=== PATIENT | male | born 1945 | race Caucasian/White ===

== ENCOUNTER 2020-01-02 16:12 | Inpatient (IN) | payer MEDICARE, OTHER ==
[~2020-01-02] VITALS: Ht 180.3 cm; Wt 109.4 kg
[~2020-01-02 16:12] MED LIST: CHOLESTEROL PILL; COUMADIN PO; GLUCOPHAGE1000 MG PO; GLUCOTROL10 M1 PO; ZESTRIL 10MG10 MG PO
[2020-01-02 16:26] VITALS: BP 133/56; PULSE 78; TEMP 98.4
[2020-01-02] MEDS ORDERED: CARDIZEM LA180 MG PO (18:09)
[2020-01-02] MEDS ORDERED: JANUVIA 100MG100 MG PO (18:09)
[2020-01-02] MEDS ORDERED: PRAVACHOL 40MG40 MG PO (18:10)
[2020-01-02] MEDS ORDERED: GLUCOTROL10 MG PO (18:10)
[2020-01-02] MEDS ORDERED: COUMADIN 5MG5 MG/TAB PO (18:11)
[2020-01-02] MEDS ORDERED: COUMADIN 6MG6 MG/TAB PO (18:12)
[2020-01-02] MEDS ORDERED: NATURAL IRON65 MG PO (18:12)
[2020-01-02] MEDS ORDERED: INSLANT SQ (18:13)
[2020-01-02] MEDS ORDERED: EPA FISH OIL1 SGL PO (18:14)
[2020-01-02] MEDS ORDERED: VITAMIN D 1001000 IU PO (18:15)
[2020-01-02] MEDS ORDERED: LASIX 40MG TABL40 MG PO (18:30)
[2020-01-02] MEDS ORDERED: CALCITRIOL PO (18:30)
[2020-01-02] MEDS ORDERED: HCTZ12.5TAB PO (18:30)
--- NOTE | 2020-01-02 18:33 | NUR ---
Patient resting in bed. Denies pain and discomfort. Dr Serna aware patient is here. VSS. IV CDI. Patient eating dinner. No further needs expressed from patient. Call light within reach.
[2020-01-02] MEDS ORDERED: LASIX 80MG TABL80 MG PO (19:22)
[2020-01-02 19:37] VITALS: BP 130/62; PULSE 98; TEMP 97.3
[2020-01-02] MEDS ORDERED: GLUCOTROL XL10 MG PO (19:38)
[2020-01-02] MEDS ORDERED: GLUCOPHAGE1000 MG PO (19:46)
[2020-01-02] MEDS ORDERED: PROAIR HFA0.09 MG/AC IH (19:47)
--- NOTE | 2020-01-02 22:17 | NUR ---
Pt doing okay, alert and oriented with VSS. ambulatory and ind in room. here with fluid overload/ pts abdomen and ble are extremely swollen, 3+. pts scrotum is also very swollen and red but denies pain with this. has productive cough but no mucous production. pt is a chronic smoker. started on bumex drip at 5ml/hr. shins are reddened, crusted and swollen. pt also has a large hard lump on left elbow. left hand is black/blue. pt denies pain or needs at this time. call light within reach, will continue to monitor
[2020-01-02 22:46] VITALS: BP 116/45; PULSE 88; TEMP 98.5
[2020-01-02 23:58] LABS: URINE PROTEIN:CREAT RATIO 0.36 (0.00-0.14)
--- NOTE | 2020-01-03 06:20 | NUR ---
pt has done well throughout night, tolerating bumex gtt. good urine output
[2020-01-03 06:53] LABS: HEMOGLOBIN 10.1 g/dl (13.5-18.0); MEAN CELL VOLUME 87 fl (80.0-100.0); MEAN CORPUSCULAR HEMOGLOBIN 27 pg (27.0-31.0); MEAN CORPUSCULAR HGB CONC 31 g/dl (33.0-37.0); MEAN PLATELET VOLUME 10.1 fl (7.4-10.4); PLATELET COUNT 205 K/mm3 (130-400); RED BLOOD COUNT 3.79 M/mm3 (4.20-5.60); REDCELL DISTRIBUTION WIDTH-CV 17.5 % (11.5-14.5)
[2020-01-03 06:56] LABS: INR 2.4 (0.8-3.0); PROTHROMBIN TIME 28.8 SECONDS (9.7-12.8)
[2020-01-03 07:02] LABS: ALBUMIN 3.4 gm/dL (3.5-5.0); CALCIUM 9.7 mg/dL (8.4-10.2); CREATININE, serum 2.65 (0.66-1.25); PHOSPHOROUS 4.4 mg/dL (2.5-4.5); POTASSIUM 4.2 mmol/L (3.4-5.0)
[2020-01-03 07:41] LABS: BAND 5 % (0-10); EOSINOPHIL 2 % (0-4); LYMPHOCYTE 4 % (20.0-51.0); NEUTROPHILS 80 % (42.0-75.2); NUCLEATED RED BLOOD CELL 1 (0-6)
[2020-01-03 07:43] LABS: ANISOCYTOSIS 2+; HYPOCHROMIA 3+
[2020-01-03 09:07] VITALS: BP 121/47; PULSE 68; TEMP 97.7
--- NOTE | 2020-01-03 10:04 | NUR ---
Initial visit; Patient thanked Advanced Manufacturing Associate for looking in on him and offering God's blessings.
[2020-01-03 11:49] VITALS: BP 115/49; PULSE 86; TEMP 97.4
--- NOTE | 2020-01-03 14:57 | NUR ---
JARON met with the patient to complete initial intake. The patient lives alone in [place]. The patient has a cane and reports independence with ADLs. The patient's PCP is Dr. Roberts and picks up his medications from [facility]. The patient does not have advanced directives in the EMR. The patient reports that his emergency contact is his daughter, Brandy Jones or . director water and waste services will continue to follow to ensure a safe discharge.
[2020-01-03 15:35] VITALS: BP 118/50; PULSE 86
[2020-01-03 15:41] VITALS: TEMP 97.4
[2020-01-03 20:16] VITALS: BP 107/39; PULSE 85; TEMP 97.9
[2020-01-04 00:28] VITALS: BP 106/48; PULSE 88; TEMP 98.3
--- NOTE | 2020-01-04 01:35 | NUR ---
This advertising writer noted PT had BP below Parameters. This advertising writer reassessed PT and noted that BP had increased as charted. Will continue to monitor.
--- NOTE | 2020-01-04 03:30 | NUR ---
PT noted to be in bed and reports that earlier he was standing up to use male urinal and did not use call light to request help. PT IV occluded and blood noted to be in the iv tubing. IV line flushed with 10 cc NS with no difficulty or reports of pain. IV restarted and infusing with no alarms. PT educated to use call light to request assistance before leaving bed to reduce risk of falls, injury, or accidentally removing IV line from his arm. PT states understanding. Will continue to monitor.
--- NOTE | 2020-01-04 04:32 | NUR ---
PT uses call light to notify this technical proposal writer that he needs to void and have a BM. Upon entering PT room PT is noted to be standing with SCD's on and pulling on his legs. PT is also noted to be standing in urine and reports that his legs got caught while transfering to his feet and he dropped his urinal and began to void while pipcking it back up. PT floor cleaned up by this technical proposal writer and PT assisted to restroom where he makes a small firm BM. Upon assisting PT back to bed SCD's are left of due to PT noncompliance with transfering and increased fall risk. PT is on coumadin which is also used as a VTE. Will provide report to more BECERRA requesting clarification order from regarding coumadin versus SCDs. Will continue to monitor.
[2020-01-04 04:53] VITALS: BP 121/68; PULSE 79; TEMP 982
--- NOTE | 2020-01-04 06:43 | NUR ---
sHIFT REPORT GIVEN TO GEOVANNI BECERRA. PT RESTING IN BED PEACEFULLY WATCHING TV WITH NO WANTS/NEEDS AT THIS TIME
[2020-01-04 08:00] VITALS: BP 108/61; PULSE 91; TEMP 97.4
[2020-01-04 09:04] LABS: HEMOGLOBIN 10.2 g/dl (13.5-18.0); MEAN CELL VOLUME 86 fl (80.0-100.0); MEAN CORPUSCULAR HEMOGLOBIN 27 pg (27.0-31.0); MEAN CORPUSCULAR HGB CONC 31 g/dl (33.0-37.0); MEAN PLATELET VOLUME 10.1 fl (7.4-10.4); PLATELET COUNT 226 K/mm3 (130-400); RED BLOOD COUNT 3.82 M/mm3 (4.20-5.60); REDCELL DISTRIBUTION WIDTH-CV 17.3 % (11.5-14.5)
[2020-01-04 09:08] LABS: HEMATOCRIT 32.9 % (42.0-52.0)
[2020-01-04 09:17] LABS: ALBUMIN 3.5 gm/dL (3.5-5.0); CALCIUM 10.1 mg/dL (8.4-10.2); CREATININE, serum 2.66 (0.66-1.25); PHOSPHOROUS 4.2 mg/dL (2.5-4.5); POTASSIUM 3.7 mmol/L (3.4-5.0)
[2020-01-04 09:33] LABS: INR 2.6 (0.8-3.0); PROTHROMBIN TIME 31.1 SECONDS (9.7-12.8)
[2020-01-04 10:47] LABS: BAND 3 % (0-10); EOSINOPHIL 2 % (0-4); LYMPHOCYTE 14 % (20.0-51.0); NEUTROPHILS 69 % (42.0-75.2)
[2020-01-04 10:48] LABS: PLATELET ESTIMATE NORMAL (NORMAL)
[2020-01-04 11:49] VITALS: BP 124/53; PULSE 83; TEMP 98
[2020-01-04 16:56] VITALS: BP 105/47; PULSE 87; TEMP 98.1
--- NOTE | 2020-01-04 18:52 | NUR ---
PT report received from Lizzy BECERRA. PT sitting in bed with no s/s of distress noted. Male urinal is noted to have clear yellow urine. No s/s of distress noted.
--- NOTE | 2020-01-04 20:30 | NUR ---
PT resting peacefully in bed with eyes open and watching tv. PT greets this sports writer upon entering room. PT remains in positive spirits and reports that he is feeling better today. PT remains edematous to his BLE, scrotum and abdomen at this time. PT presents with no s/s of distress and denies pain at this time. PT call light is within reach and he has a cup of ice on his bedside table and states that he is watching his fluid intake. IV fluids running without complications. Will continue to monitor.
[2020-01-04 21:59] VITALS: BP 111/57; PULSE 84; TEMP 97.8
[2020-01-05] VITALS (7 sets, daily range): BP systolic 114–128; BP diastolic 46–66; PULSE 79–91; TEMP 97.1–98.9
--- NOTE | 2020-01-05 02:22 | NUR ---
PT continues to cause ooculsions to his IV D/T raising his right arms above his head and bending the elbow while he is sleeping. There is blood noted in the IV tubing. IV tubing flushes easily with NS syringe. Two 10ml syringed used to flush IV from the proximal port and through the IV pump VIA the piggyback. PT new IV access is difficult to palpate due to his edema. Will continue to monitor.
--- NOTE | 2020-01-05 04:50 | NUR ---
PT is restign in bed peacefully and opens eyes when this documentation writer enters room to obtain VS. PT presents with no s/s of distress and denies pain or wants/needs at this time. IV continues to infuse without complications. Will continue to monitor.
--- NOTE | 2020-01-05 07:01 | NUR ---
PT report given to Lizzy BECERRA. PT resting in bed peacefully with eyes closed and no s/s of distress noted.
[2020-01-05 10:57] LABS: BASO # 0.1 (0.0-0.2); BASO % 1.1 % (0.0-2.0); EOS # 0.3 (0.0-0.7); EOS % 3.6 % (0-4.0); GRAN # 6.1 (1.4-6.5); GRAN % 69.4 % (42.2-75.2); LYMPH # 0.9 (1.2-3.4); LYMPH % 9.6 % (20.0-51.0); MEAN CELL VOLUME 85 fl (80.0-100.0); MEAN CORPUSCULAR HEMOGLOBIN 27 pg (27.0-31.0); MEAN CORPUSCULAR HGB CONC 32 g/dl (33.0-37.0); MEAN PLATELET VOLUME 9.6 fl (7.4-10.4); MONO # 1.4 (0.1-0.6); MONO % 15.6 % (1.7-9.3); PLATELET COUNT 201 K/mm3 (130-400); RED BLOOD COUNT 3.71 M/mm3 (4.20-5.60); REDCELL DISTRIBUTION WIDTH-CV 17.2 % (11.5-14.5)
[2020-01-05 10:58] LABS: INR 2.5 (0.8-3.0)
[2020-01-05 11:03] LABS: HEMATOCRIT 31.7 % (42.0-52.0)
[2020-01-05 11:23] LABS: ALBUMIN 3.4 gm/dL (3.5-5.0); CALCIUM 10.2 mg/dL (8.4-10.2); CREATININE, serum 2.62 (0.66-1.25); PHOSPHOROUS 4.1 mg/dL (2.5-4.5); POTASSIUM 3.6 mmol/L (3.4-5.0)
--- NOTE | 2020-01-05 21:30 | NUR ---
Pt. sitting up in bed at this time. Pt. is A&OX3, assessment complete. INT to rt. ac patent. Pt. denies pain or other needs, call light within reach.
[2020-01-06 04:58] VITALS: BP 114/52; PULSE 84; TEMP 97.7
[2020-01-06 06:34] LABS: MEAN CELL VOLUME 86 fl (80.0-100.0); MEAN CORPUSCULAR HGB CONC 32 g/dl (33.0-37.0); MEAN PLATELET VOLUME 9.6 fl (7.4-10.4); PLATELET COUNT 195 K/mm3 (130-400); RED BLOOD COUNT 3.61 M/mm3 (4.20-5.60); REDCELL DISTRIBUTION WIDTH-CV 17.3 % (11.5-14.5)
[2020-01-06 06:44] LABS: HEMATOCRIT 30.9 % (42.0-52.0); HEMOGLOBIN 9.8 g/dl (13.5-18.0); MEAN CORPUSCULAR HEMOGLOBIN 27 pg (27.0-31.0)
[2020-01-06 06:49] LABS: ALBUMIN 3.3 gm/dL (3.5-5.0); CALCIUM 10.2 mg/dL (8.4-10.2); CREATININE, serum 2.77 (0.66-1.25); PHOSPHOROUS 3.9 mg/dL (2.5-4.5); POTASSIUM 3.5 mmol/L (3.4-5.0)
[2020-01-06 07:37] LABS: INR 2.4 (0.8-3.0); PROTHROMBIN TIME 28.9 SECONDS (9.7-12.8)
[2020-01-06 07:39] VITALS: BP 108/46; PULSE 88; TEMP 97.7
[2020-01-06 07:42] LABS: ANISOCYTOSIS 1+; BAND 7 % (0-10); BASOPHIL 1 % (0-2); EOSINOPHIL 3 % (0-4); LYMPHOCYTE 18 % (20.0-51.0); METAMYELOCYTE 1 % (0-0); NEUTROPHILS 60 % (42.0-75.2); OVALOCYTES 1+
--- NOTE | 2020-01-06 08:10 | NUR ---
Lying in bed with eyes closed. Opens eyes when name called out. Gets short of breath with activity. Encouraged patient to cough and take deep breaths. Mild swelling to left elbow with some redness noted. 3+ bilat lower extremity edema. Skin on lower etremities thick and scaly. Heart rate is irregular. Lung sounds are clear but slightly diminished. Patient denies pain or any needs at this time.
--- NOTE | 2020-01-06 09:07 | NUR ---
Pt watching tv upon this mortgage underwriter's arrival. AOx4. IV site intact. Denies pain at this time. Expressed knowledge of fluid restriction and stated that he wants to be compliant with this so that he can return home soon. SCDs re-applied and pt was reminded to press call light before getting out of bed so that SCDs could be removed. Pt verbalized understanding. +1 edema noted in bilateral upper extremities and +2 edema noted in bilateral lower extremities. Pt was encouraged to come to staff with any needs.
[2020-01-06 11:24] VITALS: BP 121/57; PULSE 88; TEMP 98.2
--- NOTE | 2020-01-06 15:20 | NUR ---
This copywriter assisted pt with shower. Bandage around IV site replaced. Shortness of breath with exertion observed. Given warm blanket.
[2020-01-06 16:09] VITALS: BP 110/53; PULSE 88; TEMP 98
--- NOTE | 2020-01-06 19:00 | NUR ---
PT report received from daysdeaminata RN and student. PT presents in bed watching tv and greets this contract writer and dayspomerene hospital nurse as they enter the room. PT appears to be in good spirits and states that he continues to feel better day by day. Call light is within reach and PT has a glass of ice on bedside table within reach. PT remains cognizant of his fluid restrictions and follows them. Bumex IV drip is running with no s/s of adverse IV reactions or complications. Will continue to monitor.
[2020-01-06 19:35] VITALS: BP 127/47; PULSE 85; TEMP 97.7
[2020-01-06 22:51] VITALS: BP 110/40; PULSE 85; TEMP 98.9
[2020-01-07 01:35] VITALS: BP 121/52
--- NOTE | 2020-01-07 01:38 | NUR ---
PT BP noted to be below ordered parameters. BP reassessed by this grant writer and noted to be above parameters at this time as charted. Will continue to monitor. No s/s of cardiopulmonary distress noted.
--- NOTE | 2020-01-07 03:00 | NUR ---
PT resting in bed with eyes closed and opens eyes as this teletypewriter operator enters room. PT requests a glass of ice as the glass he had earlier is almost empty. This teletypewriter operator provided a glass of ice. PT shows no s/s of distress, denies pain, and otherwise has no wants/needs. Will continue to monitor. Call light within reach and PT is knowledgeable of how to use call light on bedrail in the event that he drops the call light while sleeping.
[2020-01-07 03:31] VITALS: BP 120/65; PULSE 87; TEMP 97.7
--- NOTE | 2020-01-07 04:55 | NUR ---
PT uses call light to request help from this entry writer. Upon entering room PT is noted to be standing at bedside with what he reports is urine around his feet and soaking his underwear and clear yellow urine in male urinal. This entry writer assists PT in cleaning himself up, wipes up the floor, and assist PT in placing on new clean dry underwear. PT states that he just couldnt get to the urinal in time. PT returns to bed with no s/s of distress noted with Bumex IV infusing with no complications. Will continue to monitor.
[2020-01-07 06:40] LABS: HEMOGLOBIN 10.1 g/dl (13.5-18.0); MEAN CELL VOLUME 88 fl (80.0-100.0); MEAN CORPUSCULAR HEMOGLOBIN 27 pg (27.0-31.0); MEAN CORPUSCULAR HGB CONC 31 g/dl (33.0-37.0); MEAN PLATELET VOLUME 9.8 fl (7.4-10.4); PLATELET COUNT 197 K/mm3 (130-400); RED BLOOD COUNT 3.71 M/mm3 (4.20-5.60); REDCELL DISTRIBUTION WIDTH-CV 17.2 % (11.5-14.5)
[2020-01-07 06:41] LABS: INR 2.4 (0.8-3.0); PROTHROMBIN TIME 29.2 SECONDS (9.7-12.8)
[2020-01-07 06:47] LABS: ALBUMIN 3.5 gm/dL (3.5-5.0); CALCIUM 10.5 mg/dL (8.4-10.2); CREATININE, serum 3.07 (0.66-1.25); HEMATOCRIT 32.5 % (42.0-52.0); PHOSPHOROUS 4.8 mg/dL (2.5-4.5); POTASSIUM 3.5 mmol/L (3.4-5.0)
[2020-01-07 08:05] VITALS: BP 127/56; PULSE 76; TEMP 98.8
[2020-01-07 08:27] LABS: BAND 4 % (0-10); BASOPHIL 1 % (0-2); EOSINOPHIL 4 % (0-4); LYMPHOCYTE 10 % (20.0-51.0); METAMYELOCYTE 2 % (0-0); NEUTROPHILS 73 % (42.0-75.2); PLATELET ESTIMATE NORMAL (NORMAL)
[2020-01-07 10:45] VITALS: BP 107/44; PULSE 90; TEMP 97.4
--- NOTE | 2020-01-07 10:50 | NUR ---
Assessment complete. Patient relaxing in bed at this time. Family at the bedside at this time. States he feels pretty good. No pain or discomfort reported. Patient is aware of the need to wear his SCDs, was just in to remind him of this. Plan is to DC tomorrow. Bumex drip has been D/C'd. IV site CD&I. No further needs were expressed at this time. Call light is in reach.
--- NOTE | 2020-01-07 11:31 | NUR ---
Pt is resting in bed. Denies having any pain. SCDs on lower extremities. IV converted to INT on Right arm. Pt was up to chair for breakfast at 0730 and consumed 100%. Pt is compliant with strict I/O. Accucheck this morning was 99, no sliding scale insulin administered.
[2020-01-07 16:20] VITALS: BP 123/48; PULSE 81; TEMP 97.5
--- NOTE | 2020-01-07 17:48 | NUR ---
Pt has had an uneventful day. No complaints of pain. Had to assist with repositioning a few times which relieved any discomfort. SCDs have been on all day per Dr. Serna' reminder this morning. Son and other family have been in to visit intermittently throughout the day. No further needs were expressed at this time. Call light is in reach.
[2020-01-07 20:00] VITALS: BP 125/49; PULSE 88; TEMP 97.7
[2020-01-08 00:59] VITALS: BP 104/38; PULSE 77; TEMP 97.8
[2020-01-08 04:49] VITALS: BP 126/47; PULSE 96; TEMP 98.2
[2020-01-08 06:10] LABS: MEAN CELL VOLUME 89 fl (80.0-100.0); MEAN CORPUSCULAR HGB CONC 30 g/dl (33.0-37.0); MEAN PLATELET VOLUME 10.4 fl (7.4-10.4); PLATELET COUNT 182 K/mm3 (130-400); RED BLOOD COUNT 3.65 M/mm3 (4.20-5.60); REDCELL DISTRIBUTION WIDTH-CV 17.4 % (11.5-14.5)
[2020-01-08 06:18] LABS: HEMATOCRIT 32.4 % (42.0-52.0); HEMOGLOBIN 9.8 g/dl (13.5-18.0); MEAN CORPUSCULAR HEMOGLOBIN 27 pg (27.0-31.0)
[2020-01-08 06:22] LABS: ALBUMIN 3.5 gm/dL (3.5-5.0); CALCIUM 10.2 mg/dL (8.4-10.2); CREATININE, serum 2.98 (0.66-1.25); PHOSPHOROUS 4.9 mg/dL (2.5-4.5); POTASSIUM 3.1 mmol/L (3.4-5.0)
[2020-01-08 06:44] LABS: INR 2.6 (0.8-3.0); PROTHROMBIN TIME 30.7 SECONDS (9.7-12.8)
[2020-01-08 07:00] VITALS: BP 94/47; PULSE 73; TEMP 97.7
--- NOTE | 2020-01-08 07:00 | NUR ---
Pt resting comfortablly with eyes closed in bed. Shift assessment completed. Denies having pain. Blood pressure 94/47, primary nurse notified. SCDs reapplied. Got Pt ice per request. INT right forearm intact, no redness noted.
--- NOTE | 2020-01-08 07:18 | NUR ---
Patient has been able to rest this shift. Patient calls for assistance for voiding. No complaints of pain, nausea or vomiting this shift. Patient lung sounds expitory wheezes bilaterally. Edema in lower extremities are at 2+ bilaterally, with discolored, flaking shins.
[2020-01-08 07:23] LABS: ANISOCYTOSIS 1+; BAND 6 % (0-10); EOSINOPHIL 1 % (0-4); HYPOCHROMIA 2+; LYMPHOCYTE 19 % (20.0-51.0); METAMYELOCYTE 1 % (0-0); MICROCYTOSIS 1+; NEUTROPHILS 69 % (42.0-75.2); PLATELET ESTIMATE NORMAL (NORMAL)
[2020-01-08 07:24] LABS: OVALOCYTES 1+
--- NOTE | 2020-01-08 09:15 | NUR ---
Reassessed blood pressure at 135/67, Pt alert and up in chair, ambulating independently in room.
[2020-01-08 09:51] VITALS: BP 135/67
--- NOTE | 2020-01-08 10:09 | NUR ---
JARON met with the patient to review discharge plan. The patient reports that the still plans to return home upon discharge. He had no questions for SW. He states that his daughter will provide him with transportation back home. No additional needs at this time.
[2020-01-08 11:00] VITALS: BP 156/57; PULSE 73; TEMP 98.4
--- NOTE | 2020-01-08 16:18 | NUR ---
The patient is to discharge back home today, 01/08. SW met with the patient and presented and explained the IM form. The patient verbalized understanding, signed, and he was provided a copy. No additional needs at this time.
--- NOTE | 2020-01-08 18:28 | NUR ---
Pt escorted off the floor at this time. Discharge instructions discussed. Questions answered.
== END 2020-01-08 18:29 | disposition home or self-care (01) | DRG 292 ==
LOC: MEDICAL 16:12
PROVIDERS: ADMIT Internal Medicine Nephrology
DX: I13.0 Hypertensive heart and chronic kidney disease with heart failure and stage 1 through stage 4 chronic kidney disease, or unspecified chronic kidney disease (principal); N17.9 Acute kidney failure, unspecified; I50.32 Chronic diastolic (congestive) heart failure; Q61.2 Polycystic kidney, adult type; I42.9 Cardiomyopathy, unspecified; K76.0 Fatty (change of) liver, not elsewhere classified; N18.3 Chronic kidney disease, stage 3 (moderate); E78.5 Hyperlipidemia, unspecified; E11.22 Type 2 diabetes mellitus with diabetic chronic kidney disease; E11.21 Type 2 diabetes mellitus with diabetic nephropathy; Z66 Do not resuscitate; J44.9 Chronic obstructive pulmonary disease, unspecified; I87.8 Other specified disorders of veins; E88.09 Other disorders of plasma-protein metabolism, not elsewhere classified; I48.91 Unspecified atrial fibrillation; E66.9 Obesity, unspecified; I27.20 Pulmonary hypertension, unspecified; F17.210 Nicotine dependence, cigarettes, uncomplicated; Z68.36 Body mass index [BMI] 36.0-36.9, adult; Z79.01 Long term (current) use of anticoagulants; Z79.1 Long term (current) use of non-steroidal anti-inflammatories (NSAID); Z95.2 Presence of prosthetic heart valve
CPT/HCPCS: J1815

== ENCOUNTER 2020-01-30 12:41 | Inpatient (IN) | payer MEDICARE, OTHER ==
[~2020-01-30] VITALS: Ht 180.3 cm; Wt 107.3 kg
[~2020-01-30 12:41] MED LIST changes: +CALCITRIOL PO; +CARDIZEM LA180 MG PO; +COUMADIN 5MG5 MG/TAB PO; +COUMADIN 6MG6 MG/TAB PO; +EPA FISH OIL1 SGL PO; +GLUCOTROL XL10 MG PO; +GLUCOTROL10 MG PO; +HCTZ12.5TAB PO; +INSLANT SQ; +JANUVIA 100MG100 MG PO; +LASIX 40MG TABL40 MG PO; +LASIX 80MG TABL80 MG PO; +NATURAL IRON65 MG PO; +PRAVACHOL 40MG40 MG PO; +PROAIR HFA0.09 MG/AC IH; +VITAMIN D 1001000 IU PO
[2020-01-30] MEDS ORDERED: ZAROXOLYN 2.52.5 MG PO (14:48)
[2020-01-30 15:33] VITALS: BP 99/46; PULSE 78; TEMP 97.8
[2020-01-30 16:21] LABS: MEAN CELL VOLUME 89 fl (80.0-100.0); MEAN CORPUSCULAR HGB CONC 31 g/dl (33.0-37.0); MEAN PLATELET VOLUME 9.9 fl (7.4-10.4); PLATELET COUNT 207 K/mm3 (130-400); RED BLOOD COUNT 3.25 M/mm3 (4.20-5.60); REDCELL DISTRIBUTION WIDTH-CV 17.5 % (11.5-14.5)
[2020-01-30 16:22] LABS: INR 2.7 (0.8-3.0)
[2020-01-30 16:27] LABS: HEMATOCRIT 28.8 % (42.0-52.0); HEMOGLOBIN 8.9 g/dl (13.5-18.0); MEAN CORPUSCULAR HEMOGLOBIN 27 pg (27.0-31.0)
[2020-01-30 16:28] LABS: ALBUMIN 3.3 gm/dL (3.5-5.0); BILIRUBIN,TOTAL 1.3 mg/dL (0.0-1.0); CALCIUM 9.4 mg/dL (8.4-10.2); CREATININE, serum 2.84 (0.66-1.25); POTASSIUM 4.5 mmol/L (3.4-5.0); TOTAL PROTEIN 7.1 gm/dL (6.4-8.2)
[2020-01-30 18:33] LABS: ANISOCYTOSIS 1+; BAND 4 % (0-10); HYPOCHROMIA 1+; LYMPHOCYTE 11 % (20.0-51.0); NEUTROPHILS 75 % (42.0-75.2); PLATELET ESTIMATE NORMAL (NORMAL)
[2020-01-30 18:34] LABS: OVALOCYTES 1+; STOMATOCYTE 1+
[2020-01-30 19:57] VITALS: BP 145/59; PULSE 79; TEMP 98
[2020-01-30 20:34] LABS: URINE PROTEIN:CREAT RATIO 0.25 (0.00-0.14)
--- NOTE | 2020-01-30 21:59 | NUR ---
RECIEVED REPORT FROM THE DAY SHIFT. PATIENT WAS RESTING IN BED. GAVE HIS EVENING MEDICATIONS AND INSULIN. EMPITED URINAL FOR HIM. PATIENT DENIES ANY OTHER NEEDS AT THIS TIME.
[2020-01-31 00:18] VITALS: BP 115/40; PULSE 80; TEMP 98.7
--- NOTE | 2020-01-31 02:15 | NUR ---
PATIENT IS RESTING IN BED WITH URINL AT BEDSIDE
--- NOTE | 2020-01-31 03:34 | NUR ---
PATIENT RESTING IN BED
--- NOTE | 2020-01-31 03:50 | NUR ---
PATIENT CALLED AND REQUESTED THE PRESENCE OF THE NURSE. PATIENT STATED THAT HIS BLOOD SUGAR FELT LOW. UPON CHECKING BLOOD SUGAR HE WAS 61. ORANGE JUICE, GRAMHM CRACKERS, AND PEANUT BUTTER GIVEN TO PATIENT. WILL RECHECK BLOOD SUGAR
[2020-01-31 04:25] VITALS: BP 122/42; PULSE 83; TEMP 97.5
--- NOTE | 2020-01-31 05:10 | NUR ---
PATIENT HAS BEEN ABLE TO REST MAJORITY OF THE NIGHT. CALLING WHEN HE NEEDED HIS URINAL DUMPED. HE DID CALL AND ASK FOR THE NURSE AND AFTER CHECKING HIS BLOOD SUGAR, IT WAS IN THE 60'S. AFTER SOME ORANGE JUICE, GRAGHM CRACKERS, AND PEANUT BUTTER, IT WAS 89. PATIENT WAS ABLE TO GO BACK TO SLEEP. WILL REPORT OFF TO DAY SHIFT WHEN THEY ARRIVE.
[2020-01-31 06:48] LABS: BASO # 0.1 (0.0-0.2); BASO % 1.3 % (0.0-2.0); EOS # 0.3 (0.0-0.7); GRAN # 5.9 (1.4-6.5); GRAN % 68.8 % (42.2-75.2); LYMPH # 0.8 (1.2-3.4); MEAN CELL VOLUME 89 fl (80.0-100.0); MEAN CORPUSCULAR HGB CONC 31 g/dl (33.0-37.0); MEAN PLATELET VOLUME 10.1 fl (7.4-10.4); MONO # 1.5 (0.1-0.6); MONO % 17.3 % (1.7-9.3); PLATELET COUNT 196 K/mm3 (130-400); RED BLOOD COUNT 3.19 M/mm3 (4.20-5.60); REDCELL DISTRIBUTION WIDTH-CV 17.3 % (11.5-14.5)
[2020-01-31 06:52] LABS: HEMATOCRIT 28.4 % (42.0-52.0); HEMOGLOBIN 8.8 g/dl (13.5-18.0); MEAN CORPUSCULAR HEMOGLOBIN 28 pg (27.0-31.0)
[2020-01-31 07:02] LABS: CALCIUM 9.5 mg/dL (8.4-10.2); CREATININE, serum 2.82 (0.66-1.25); POTASSIUM 3.9 mmol/L (3.4-5.0)
[2020-01-31 07:11] LABS: INR 2.7 (0.8-3.0)
[2020-01-31 08:07] VITALS: BP 106/46; PULSE 92; TEMP 97.9
--- NOTE | 2020-01-31 08:47 | NUR ---
Initial visit; Patient thanked Figurine Maker for looking in on him and offering spiritual care.
[2020-01-31 11:13] VITALS: BP 134/55; PULSE 82; TEMP 97.5
--- NOTE | 2020-01-31 16:25 | NUR ---
JARON met with the patient to complete initial intake. The patient lives alone in [place]. The patient has a cane and walker but does not need them and is independent with ADLs. The patient's PCP is Dr. Roberts and receives medications from [facility]. The patient does not have advanced directives in the EMR. The patient has one daughter, Brandy Jones (p#[phone] or [phone]). Physical therapy is recommending home health or outpatient physcial therapy. The patient is not interested in those services at this time. director agricultural services will continue to follow to ensure a safe discharge.
[2020-01-31 17:00] VITALS: BP 108/40; PULSE 79; TEMP 97.7
[2020-01-31 19:19] VITALS: BP 128/64; PULSE 83; TEMP 97.9
--- NOTE | 2020-01-31 19:51 | NUR ---
RECIEVED REPORT FROM DAY SHIFT. NO ABNORMAL FINDINGS ON HIS ASSESSMENT. CALL LIGHT IN REACH WELL URINAL FOR HIM TO USE. DENIES ANY SHORTNESS OF BREATH, NAUSEA, VOMITING, OR DIARRHEA.
[2020-02-01] VITALS (7 sets, daily range): BP systolic 94–122; BP diastolic 31–62; PULSE 76–95; TEMP 97.3–98.9
--- NOTE | 2020-02-01 01:27 | NUR ---
PATIENT IS RESTING
--- NOTE | 2020-02-01 06:06 | NUR ---
patient has rested through the night in his bed. urinal at bedside for him to use. call light within reach. denies any other needs at this time. will report off to day shift upon their arrival
[2020-02-01 07:34] LABS: BASO # 0.1 (0.0-0.2); BASO % 1.3 % (0.0-2.0); EOS # 0.3 (0.0-0.7); EOS % 3.6 % (0-4.0); GRAN # 5.5 (1.4-6.5); LYMPH % 11.7 % (20.0-51.0); MEAN CELL VOLUME 88 fl (80.0-100.0); MEAN CORPUSCULAR HGB CONC 30 g/dl (33.0-37.0); MEAN PLATELET VOLUME 10.4 fl (7.4-10.4); MONO # 1.4 (0.1-0.6); PLATELET COUNT 197 K/mm3 (130-400); RED BLOOD COUNT 3.15 M/mm3 (4.20-5.60); REDCELL DISTRIBUTION WIDTH-CV 17.2 % (11.5-14.5)
[2020-02-01 07:42] LABS: HEMATOCRIT 27.6 % (42.0-52.0); HEMOGLOBIN 8.4 g/dl (13.5-18.0); MEAN CORPUSCULAR HEMOGLOBIN 27 pg (27.0-31.0)
[2020-02-01 07:44] LABS: INR 2.7 (0.8-3.0); PROTHROMBIN TIME 32.3 SECONDS (9.7-12.8)
[2020-02-01 07:59] LABS: CALCIUM 9.5 mg/dL (8.4-10.2); CREATININE, serum 2.61 (0.66-1.25); POTASSIUM 3.4 mmol/L (3.4-5.0)
--- NOTE | 2020-02-01 17:37 | NUR ---
Patient is resting in bed on left side. Is noted to have another sprite, has not met fluid restriction as of this time. Denies pain at this time. States he is in a comfortable position. No other needs are verbalized. Call light and personal items are within reach.
--- NOTE | 2020-02-01 20:35 | NUR ---
RECIEVED REPORT FROM DAY SHIFT ON THE PATIENT. BUMEX DRIP IS AT 2.5 MLS/HR. ONLY COMPLAINT FROM THE PATIENT IS THAT HE IS TIRED. NO ABNORMAL FINDINGS UPON ASSESSMENT OF THE PATIENT. PATIENT HAS CALL LIGHT WITHIN REACH, WATER, AND URINAL. DENIES ANY OTHER ISSUES AT THIS TIME
--- NOTE | 2020-02-02 01:25 | NUR ---
patient is resting in bed on his left side
--- NOTE | 2020-02-02 03:26 | NUR ---
patient is sitting on the edge of the bed having some graghm crackers and peanut butter. patients urinal was dumped. denies any needs at this time
[2020-02-02 04:31] VITALS: BP 110/42; PULSE 82; TEMP 97.5
--- NOTE | 2020-02-02 06:01 | NUR ---
PATIENT HAD A RESTFUL NIGHT SLEEP FOR THE MOST PART AFTER BEING AWAKE FOR THE CRACKERS SNACK. PATIENT USES THE URINAL AT BEDSIDE. NO CHANGES ARE NOTED. WILL REPORT OFF TO DAY SHIFT UPON THEIR ARRIVAL.
[2020-02-02 07:28] VITALS: BP 105/43; PULSE 82; TEMP 97.8
[2020-02-02 12:26] VITALS: BP 126/60; PULSE 69; TEMP 97.5
[2020-02-02 13:36] LABS: MEAN CELL VOLUME 88 fl (80.0-100.0); MEAN CORPUSCULAR HGB CONC 31 g/dl (33.0-37.0); MEAN PLATELET VOLUME 9.8 fl (7.4-10.4); PLATELET COUNT 187 K/mm3 (130-400); REDCELL DISTRIBUTION WIDTH-CV 16.9 % (11.5-14.5)
[2020-02-02 13:39] LABS: HEMATOCRIT 29.1 % (42.0-52.0); MEAN CORPUSCULAR HEMOGLOBIN 27 pg (27.0-31.0)
[2020-02-02 13:41] LABS: INR 1.9 (0.8-3.0); PROTHROMBIN TIME 22.9 SECONDS (9.7-12.8)
[2020-02-02 13:47] LABS: CALCIUM 9.6 mg/dL (8.4-10.2); CREATININE, serum 2.92 (0.66-1.25); POTASSIUM 3.4 mmol/L (3.4-5.0)
[2020-02-02 14:09] LABS: ANISOCYTOSIS 1+; BAND 4 % (0-10); EOSINOPHIL 4 % (0-4); LYMPHOCYTE 8 % (20.0-51.0); METAMYELOCYTE 1 % (0-0); NEUTROPHILS 66 % (42.0-75.2); OVALOCYTES 1+; PLATELET ESTIMATE NORMAL (NORMAL)
[2020-02-02 16:45] VITALS: BP 109/42; PULSE 78; TEMP 97.8
--- NOTE | 2020-02-02 19:01 | NUR ---
Patient resting in bed, head is up, is eating supper. Weight obtained per providers order. Calll ight and personal items are within reach..
--- NOTE | 2020-02-02 19:05 | NUR ---
Pt report received from Patti BECERRA at Pt bedside. Pt has call light at his side and on the bedside table are beverages and male urinal within reach. No s/s of distress noted. Will continue to monitor.
[2020-02-02 20:13] VITALS: BP 100/40; PULSE 81; TEMP 98.4
[2020-02-02 23:41] VITALS: BP 100/40; PULSE 82; TEMP 98.8
--- NOTE | 2020-02-03 02:04 | NUR ---
Pt has remained in stable condition since shift report periodically getting up to his feet to use his male urinal. Pt is A&Ox4, able to make wants/needs knows, and has call light at his side or within reach on the bedside table. Pt has been resting in bed this shift watching tv earlier and currently lying in bed with eyes closed. Earlier when this television writer made rounds Pt opened his eyes as this television writer entered room and denied pain or wants/needs. Pt is currently resting peacefully with eyes closed with no s/s of pain or distress. Pt compliant with medication regimen and I&O collection. Will continue to monitor.
[2020-02-03 04:07] VITALS: BP 90/40; PULSE 105; TEMP 98.3
[2020-02-03 06:54] LABS: BASO # 0.1 (0.0-0.2); EOS # 0.3 (0.0-0.7); EOS % 3.1 % (0-4.0); GRAN # 5.4 (1.4-6.5); GRAN % 63.3 % (42.2-75.2); LYMPH # 1.3 (1.2-3.4); LYMPH % 14.6 % (20.0-51.0); MEAN CELL VOLUME 89 fl (80.0-100.0); MEAN CORPUSCULAR HGB CONC 31 g/dl (33.0-37.0); MONO # 1.5 (0.1-0.6); MONO % 17.3 % (1.7-9.3); PLATELET COUNT 185 K/mm3 (130-400); RED BLOOD COUNT 3.25 M/mm3 (4.20-5.60); REDCELL DISTRIBUTION WIDTH-CV 16.8 % (11.5-14.5)
[2020-02-03 06:58] LABS: HEMATOCRIT 28.8 % (42.0-52.0); MEAN CORPUSCULAR HEMOGLOBIN 28 pg (27.0-31.0)
[2020-02-03 06:59] LABS: INR 1.8 (0.8-3.0); PROTHROMBIN TIME 21.6 SECONDS (9.7-12.8)
[2020-02-03 07:05] LABS: CALCIUM 9.5 mg/dL (8.4-10.2); CREATININE, serum 3.3 (0.66-1.25); POTASSIUM 3.1 mmol/L (3.4-5.0)
--- NOTE | 2020-02-03 07:28 | NUR ---
Pt report given to Elizabeth BECERRA at bedside. Pt is noted to be using male urinal at bedside.
--- NOTE | 2020-02-03 08:00 | NUR ---
PATIENT IS ORIENTED BUT DROWSY THIS AM. REPORTS HE SLEPT OFF AND ON LAST NIGHT. NOTED LOWER B/P OF 90/40 WITH ELEVATED HR OF 105. PATIENT HR HAS BEEN IN THE 80'S. EXERCISE EQUIPMENT SPECIALIST REPORTS ANY CHANGES IN THE PATIENT OVER NIGHT. AM BS WAS 59, PATIENT GIVEN JUICE. BS IS NOW 77, NO SSI GIVEN. AM MEDS GIVEN. NOTED BLE +2 EDEMA WHICH IS REPORTED IMPROVED AND MILD SCROTUM EDEMA. GAVE DIURETIC. PATIENT VOIDING ADEQUATE AMOUNTS OF CLEAR YELLOW URINE USING URINAL. 15OO CC FLUID RESTRICTION. RIGHT AC IV TO INT. PATIENT HAS HX OF CKD, DM & CHF. PATIENT STATES HE WILL EVENTUALLY NEED DIALYSIS AND FISTULA PLACED. NEPHROLOGY ON CASE. HEAD TO TOE ASSESSMENT COMPLETE. DNR. NO OTHER NEEDS AT THIS TIME. PATIENT WANTING TO REST A LITTLE LONGER. LIGHTS TURNED DOWN. CALL LIGHT IN REACH.
[2020-02-03 09:10] VITALS: BP 109/31; PULSE 77; TEMP 97.6
--- NOTE | 2020-02-03 09:15 | NUR ---
PATIENT AMBULATING IN HALLWAYS WITH PHYSICAL THERAPY. GAIT STEADY WITH WALKER. SEE PT NOTES.
[2020-02-03 12:50] VITALS: BP 103/43; PULSE 73; TEMP 97.7
--- NOTE | 2020-02-03 14:40 | NUR ---
First visit from the package sealer machine. No needs right now.
[2020-02-03 15:37] VITALS: BP 101/39; PULSE 80; TEMP 97.3
--- NOTE | 2020-02-03 16:33 | NUR ---
SW attempted to meet with the patient to review discharge plan. The patient was sleeping. The patient's son-in-law, Kings Parada, was in the room. Kings reports that his (the patient's daughter), Emilia, would have questions for SW. He states that Emilia will be up to the hospital tomorrow morning. SW to continue to follow.
--- NOTE | 2020-02-03 19:10 | NUR ---
Pt report recieved from dayshift nurse at bedside. Pt is sitting in bed with TV on and no s/s of distress noted. Pt is A&Ox4, is able to make his wants/needs knows, and has call light within reach. Pt bedside table has beverages within reach as well as the male urinal that Pt uses independantly. Will continue to monitor.
[2020-02-03 20:16] VITALS: BP 99/49; PULSE 72; TEMP 98
--- NOTE | 2020-02-03 23:30 | NUR ---
Pt has had a good evening and has remained resting in bed with no complaints of pain, discomfort and no s/s of distress noted. Pt has been watching tv but is currently lying in bed with eyes closed and tv off. Pt has used the male urinal multiple times during the shift with clear yellow urine noted. Pt is compliant with care and medication regimen. Pt is eager to be discharged and discussed with this typewriter ribbon winder during his assessment about his medical plans for outpatient visit for the placement of his dialysis fistula next week. Pt has call light within reach and this typewriter ribbon winder will continue to monitor.
[2020-02-03 23:48] VITALS: BP 99/39; PULSE 77; TEMP 98.1
[2020-02-04 04:32] VITALS: BP 107/44; PULSE 66; TEMP 98.2
--- NOTE | 2020-02-04 05:39 | NUR ---
Pt has slept throughout the night until waking up about an hour ago stating that he was hungry and asking this senior medical writer to get him 2 oranges from his bag. Pt denies pain or discomfort at this time. Pt remains in stable condition with no s/s of distress noted. Will continue to monitor.
--- NOTE | 2020-02-04 06:45 | NUR ---
Report given to Yarelis BECERRA
[2020-02-04 07:43] VITALS: BP 100/40; PULSE 79; TEMP 97.7
--- NOTE | 2020-02-04 08:06 | NUR ---
Pt assessment complete. Pt is sitting up in bed eating breakfast, he is A/O x4. His breathing is even and unlabored on RA, pt denies SOB. Pt does have a wet cough, reports it's non productive. Pt denies any pain. LUE restricted. Pt eager to discharge, POC discussed with patient who verbalizes understanding. Has no further needs at this time. Call light within reach.
--- NOTE | 2020-02-04 11:58 | NUR ---
SW met with the patient to review discharge plan and to discuss PT's recommendation of home health vs outpatient therapy. The patient declined both home health and outpatient therapy. He states that his daughter, son-in-law, and grandson help him and that he has one of them with him 90% of the time. The patient is to discharge back home today, 02/03, with family support. JARON presented and explained the IM form to the patient. The patient verbalized understanding, signed, and he was provided a copy. No additional needs at this time.
--- NOTE | 2020-02-04 12:00 | NUR ---
Discharge paperwork and instructions reviewed with patient. All questions answered at this time. IV to RAC dc'd catheter tip intact. Pt awaiting ride at this time.
--- NOTE | 2020-02-04 12:45 | NUR ---
Pt wheeled out at this time.
--- NOTE | 2020-02-05 14:00 | NUR ---
Palliative Care Nurse, Collette, informed SW that she spoke to the patient's family for the discharge follow up call and the patient's family informed her that they would like to get the patient set up for home health. JARON attempted to contact the patient's daughter, Nasima, to follow up and discuss home health. SW left her a voicemail.
== END 2020-02-04 12:46 | disposition home or self-care (01) | DRG 641 ==
LOC: MEDICAL 12:41
PROVIDERS: Nurse Practitioner; ADMIT Internal Medicine Nephrology
DX: E87.70 Fluid overload, unspecified (principal); I48.20 Chronic atrial fibrillation, unspecified; J90 Pleural effusion, not elsewhere classified; N18.3 Chronic kidney disease, stage 3 (moderate); E11.22 Type 2 diabetes mellitus with diabetic chronic kidney disease; I12.9 Hypertensive chronic kidney disease with stage 1 through stage 4 chronic kidney disease, or unspecified chronic kidney disease; I27.20 Pulmonary hypertension, unspecified; F17.210 Nicotine dependence, cigarettes, uncomplicated
CPT/HCPCS: J1815

== ENCOUNTER 2020-03-25 13:54 | Inpatient (IN) | payer MEDICARE, OTHER ==
[~2020-03-25] VITALS: Ht 180.3 cm; Wt 108.1 kg
[~2020-03-25 13:54] MED LIST changes: +ZAROXOLYN 2.52.5 MG PO
[2020-03-25 15:24] VITALS: BP 108/63; PULSE 75
[2020-03-25] MEDS ORDERED: LOVENOX120 MG/0.8 SQ (16:07)
[2020-03-25 16:37] LABS: MEAN CELL VOLUME 87 fl (80.0-100.0); MEAN CORPUSCULAR HGB CONC 31 g/dl (33.0-37.0); MEAN PLATELET VOLUME 9.7 fl (7.4-10.4); PLATELET COUNT 204 K/mm3 (130-400); RED BLOOD COUNT 3.32 M/mm3 (4.20-5.60); REDCELL DISTRIBUTION WIDTH-CV 15.7 % (11.5-14.5)
[2020-03-25 16:38] LABS: HEMATOCRIT 28.9 % (42.0-52.0); HEMOGLOBIN 8.9 g/dl (13.5-18.0); MEAN CORPUSCULAR HEMOGLOBIN 27 pg (27.0-31.0)
[2020-03-25 16:44] LABS: INR 2.6 (0.8-3.0); PROTHROMBIN TIME 29.1 SECONDS (9.7-12.8)
[2020-03-25 16:46] LABS: PARTIAL THROMBOPLASTIN TIME 45.3 SECONDS (26.0-37.0)
[2020-03-25 16:57] LABS: ANISOCYTOSIS 1+; EOSINOPHIL 3 % (0-4); HYPOCHROMIA 3+; LYMPHOCYTE 15 % (20.0-51.0); NEUTROPHILS 69 % (42.0-75.2); OVALOCYTES 1+; PLATELET ESTIMATE NORMAL (NORMAL); POLYCHROMASIA 1+
[2020-03-25 17:15] LABS: IRON,SERUM 39 ug/dL (35-150)
[2020-03-25 17:16] LABS: ALBUMIN 3.5 gm/dL (3.5-5.0); BILIRUBIN,TOTAL 1.5 mg/dL (0.0-1.0); CALCIUM 9.6 mg/dL (8.4-10.2); CREATININE, serum 3.65 (0.66-1.25); TOTAL PROTEIN 7.3 gm/dL (6.4-8.2)
[2020-03-25 17:25] LABS: TOTAL IRON BINDING CAPACITY 422 ug/dL (261-462)
[2020-03-25 21:45] VITALS: BP 136/70; PULSE 76
[2020-03-25 21:46] VITALS: TEMP 97.5
[2020-03-26 00:05] VITALS: BP 145/74; PULSE 84; TEMP 97.4
[2020-03-26 04:30] VITALS: BP 109/48; PULSE 74; TEMP 97.1
[2020-03-26 07:18] LABS: PROTHROMBIN TIME 22.2 SECONDS (9.7-12.8)
[2020-03-26 09:00] VITALS: BP 96/47; PULSE 87; TEMP 97.7
[2020-03-26 11:45] VITALS: BP 102/48; PULSE 72; TEMP 97.8
[2020-03-26 17:00] VITALS: BP 108/46; PULSE 76; TEMP 97.8
[2020-03-26 17:19] LABS: HEPATITIS B SURFACE ANTIGEN Negative (Negative); HEPATITIS C VIRUS ANTIBODY Negative (Negative)
[2020-03-26 19:21] LABS: TRANSFERRIN 314 mg/dL (180-329)
[2020-03-26 19:54] VITALS: BP 115/46; PULSE 88; TEMP 97.7
[2020-03-27] VITALS (7 sets, daily range): BP systolic 95–125; BP diastolic 42–61; PULSE 82–125; TEMP 97.9–99
[2020-03-27 05:42] LABS: INR 1.4 (0.8-3.0); PROTHROMBIN TIME 15.8 SECONDS (9.7-12.8)
[2020-03-27 13:41] LABS: MEAN CELL VOLUME 87 fl (80.0-100.0); MEAN CORPUSCULAR HGB CONC 31 g/dl (33.0-37.0); MEAN PLATELET VOLUME 9.5 fl (7.4-10.4); PLATELET COUNT 207 K/mm3 (130-400); RED BLOOD COUNT 3.05 M/mm3 (4.20-5.60); REDCELL DISTRIBUTION WIDTH-CV 15.8 % (11.5-14.5)
[2020-03-27 13:55] LABS: ALBUMIN 3.3 gm/dL (3.5-5.0); CALCIUM 9.6 mg/dL (8.4-10.2); CREATININE, serum 3.55 (0.66-1.25); PHOSPHOROUS 4.6 mg/dL (2.5-4.5)
[2020-03-27 13:58] LABS: HEMATOCRIT 26.5 % (42.0-52.0); HEMOGLOBIN 8.3 g/dl (13.5-18.0); MEAN CORPUSCULAR HEMOGLOBIN 27 pg (27.0-31.0); POTASSIUM 2.8 mmol/L (3.4-5.0)
[2020-03-27 14:29] LABS: ANISOCYTOSIS 1+; EOSINOPHIL 2 % (0-4); HYPOCHROMIA 1+; LYMPHOCYTE 12 % (20.0-51.0); NEUTROPHILS 76 % (42.0-75.2); PLATELET ESTIMATE NORMAL (NORMAL)
[2020-03-27 14:30] LABS: OVALOCYTES 1+
[2020-03-28 03:51] VITALS: BP 108/44; PULSE 91; TEMP 98.4
[2020-03-28 07:42] LABS: INR 1.3 (0.8-3.0); PROTHROMBIN TIME 14.9 SECONDS (9.7-12.8)
[2020-03-28 08:49] LABS: MEAN CELL VOLUME 89 fl (80.0-100.0); MEAN CORPUSCULAR HGB CONC 31 g/dl (33.0-37.0); MEAN PLATELET VOLUME 9.7 fl (7.4-10.4); PLATELET COUNT 184 K/mm3 (130-400); RED BLOOD COUNT 3.04 M/mm3 (4.20-5.60); REDCELL DISTRIBUTION WIDTH-CV 15.8 % (11.5-14.5)
[2020-03-28 08:51] LABS: HEMATOCRIT 26.9 % (42.0-52.0); HEMOGLOBIN 8.2 g/dl (13.5-18.0); MEAN CORPUSCULAR HEMOGLOBIN 27 pg (27.0-31.0)
[2020-03-28 09:38] LABS: ALBUMIN 3.1 gm/dL (3.5-5.0); CALCIUM 9.4 mg/dL (8.4-10.2); CREATININE, serum 2.95 (0.66-1.25); PHOSPHOROUS 3.9 mg/dL (2.5-4.5)
[2020-03-28 09:49] LABS: POTASSIUM 2.8 mmol/L (3.4-5.0)
[2020-03-28 11:45] LABS: BAND 2 % (0-10); LYMPHOCYTE 9 % (20.0-51.0); NEUTROPHILS 78 % (42.0-75.2); PLATELET ESTIMATE NORMAL (NORMAL)
[2020-03-28 11:46] LABS: ANISOCYTOSIS 1+
[2020-03-28 12:10] VITALS: BP 116/65; PULSE 94; TEMP 99.4
[2020-03-28 16:32] VITALS: BP 104/39; PULSE 83; TEMP 99.5
[2020-03-28 19:31] VITALS: BP 136/59; PULSE 91; TEMP 99.8
[2020-03-28 20:54] VITALS: BP 107/53; PULSE 93
[2020-03-28 22:49] VITALS: BP 130/61; PULSE 93; TEMP 98.5
[2020-03-29 04:07] VITALS: BP 101/69; PULSE 84; TEMP 98.7
[2020-03-29 07:20] LABS: INR 1.3 (0.8-3.0); PROTHROMBIN TIME 14.6 SECONDS (9.7-12.8)
[2020-03-29 08:18] VITALS: BP 96/65; PULSE 141; TEMP 99.2
[2020-03-29 11:39] VITALS: BP 123/39; PULSE 94; TEMP 97.9
[2020-03-29 15:48] VITALS: BP 109/58; PULSE 102; TEMP 98.2
[2020-03-29 19:29] VITALS: BP 127/55; PULSE 91; TEMP 98.1
[2020-03-30] VITALS (7 sets, daily range): BP systolic 103–123; BP diastolic 36–56; PULSE 85–104; TEMP 97.2–98.9
[2020-03-30 06:17] LABS: INR 1.3 (0.8-3.0); PROTHROMBIN TIME 14.9 SECONDS (9.7-12.8)
[2020-03-30 09:03] LABS: MEAN CELL VOLUME 90 fl (80.0-100.0); MEAN CORPUSCULAR HGB CONC 30 g/dl (33.0-37.0); MEAN PLATELET VOLUME 9.5 fl (7.4-10.4); PLATELET COUNT 179 K/mm3 (130-400); RED BLOOD COUNT 2.92 M/mm3 (4.20-5.60); REDCELL DISTRIBUTION WIDTH-CV 15.6 % (11.5-14.5)
[2020-03-30 09:09] LABS: ALBUMIN 3.1 gm/dL (3.5-5.0); CALCIUM 9.3 mg/dL (8.4-10.2); CREATININE, serum 3.14 (0.66-1.25); PHOSPHOROUS 4.1 mg/dL (2.5-4.5); POTASSIUM 3.5 mmol/L (3.4-5.0)
[2020-03-30 09:11] LABS: HEMATOCRIT 26.2 % (42.0-52.0); HEMOGLOBIN 7.8 g/dl (13.5-18.0); MEAN CORPUSCULAR HEMOGLOBIN 27 pg (27.0-31.0)
[2020-03-30 12:15] LABS: BAND 4 % (0-10); EOSINOPHIL 5 % (0-4); LYMPHOCYTE 15 % (20.0-51.0); NEUTROPHILS 69 % (42.0-75.2)
[2020-03-30 12:21] LABS: ANISOCYTOSIS 1+; PLATELET ESTIMATE NORMAL (NORMAL)
[2020-03-30 12:24] LABS: OVALOCYTES 1+
[2020-03-30 12:26] LABS: HYPOCHROMIA 2+
[2020-03-31] VITALS (8 sets, daily range): BP systolic 95–120; BP diastolic 46–65; PULSE 70–91; TEMP 97.7–98.1
[2020-03-31 06:08] LABS: MEAN CELL VOLUME 87 fl (80.0-100.0); MEAN CORPUSCULAR HGB CONC 30 g/dl (33.0-37.0); MEAN PLATELET VOLUME 9.5 fl (7.4-10.4); PLATELET COUNT 179 K/mm3 (130-400); RED BLOOD COUNT 2.86 M/mm3 (4.20-5.60); REDCELL DISTRIBUTION WIDTH-CV 15.5 % (11.5-14.5)
[2020-03-31 06:11] LABS: INR 1.3 (0.8-3.0); PROTHROMBIN TIME 14.1 SECONDS (9.7-12.8)
[2020-03-31 06:15] LABS: HEMOGLOBIN 7.6 g/dl (13.5-18.0); MEAN CORPUSCULAR HEMOGLOBIN 27 pg (27.0-31.0)
[2020-03-31 06:16] LABS: ALBUMIN 3.1 gm/dL (3.5-5.0); CALCIUM 9.4 mg/dL (8.4-10.2); CREATININE, serum 2.61 (0.66-1.25); PHOSPHOROUS 3.4 mg/dL (2.5-4.5); POTASSIUM 3.6 mmol/L (3.4-5.0)
[2020-03-31 07:30] LABS: BAND 4 % (0-10); EOSINOPHIL 6 % (0-4); LYMPHOCYTE 13 % (20.0-51.0); NEUTROPHILS 72 % (42.0-75.2); PLATELET ESTIMATE NORMAL (NORMAL)
[2020-03-31 17:04] LABS: CALCIUM 9.3 mg/dL (8.4-10.2); CREATININE, serum 1.85 (0.66-1.25); POTASSIUM 3.6 mmol/L (3.4-5.0)
[2020-04-01] VITALS (7 sets, daily range): BP systolic 91–134; BP diastolic 40–96; PULSE 81–91; TEMP 97.5–98.7
[2020-04-01 06:25] LABS: BASO # 0.1 (0.0-0.2); BASO % 1.1 % (0.0-2.0); EOS # 0.2 (0.0-0.7); EOS % 1.8 % (0-4.0); GRAN % 69.1 % (42.2-75.2); LYMPH # 0.9 (1.2-3.4); LYMPH % 10.2 % (20.0-51.0); MEAN CELL VOLUME 88 fl (80.0-100.0); MEAN CORPUSCULAR HGB CONC 30 g/dl (33.0-37.0); MEAN PLATELET VOLUME 9.6 fl (7.4-10.4); MONO # 1.5 (0.1-0.6); PLATELET COUNT 204 K/mm3 (130-400); RED BLOOD COUNT 2.97 M/mm3 (4.20-5.60); REDCELL DISTRIBUTION WIDTH-CV 15.5 % (11.5-14.5)
[2020-04-01 06:27] LABS: HEMATOCRIT 26.1 % (42.0-52.0); HEMOGLOBIN 7.9 g/dl (13.5-18.0); MEAN CORPUSCULAR HEMOGLOBIN 27 pg (27.0-31.0)
[2020-04-01 06:30] LABS: INR 1.3 (0.8-3.0); PROTHROMBIN TIME 14.8 SECONDS (9.7-12.8)
[2020-04-01 06:38] LABS: ALBUMIN 3.2 gm/dL (3.5-5.0); CALCIUM 9.5 mg/dL (8.4-10.2); CREATININE, serum 2.44 (0.66-1.25); PHOSPHOROUS 3.6 mg/dL (2.5-4.5)
[2020-04-02 03:32] VITALS: BP 100/39; PULSE 83; TEMP 97.7
[2020-04-02 07:35] VITALS: BP 111/46; PULSE 75; TEMP 97.6
[2020-04-02 07:58] LABS: BASO # 0.1 (0.0-0.2); BASO % 1.2 % (0.0-2.0); EOS # 0.2 (0.0-0.7); EOS % 3.1 % (0-4.0); GRAN # 4.5 (1.4-6.5); GRAN % 61.1 % (42.2-75.2); LYMPH # 1.2 (1.2-3.4); LYMPH % 16.2 % (20.0-51.0); MEAN CELL VOLUME 88 fl (80.0-100.0); MEAN CORPUSCULAR HGB CONC 31 g/dl (33.0-37.0); MEAN PLATELET VOLUME 9.8 fl (7.4-10.4); MONO # 1.3 (0.1-0.6); MONO % 17.4 % (1.7-9.3); PLATELET COUNT 209 K/mm3 (130-400); REDCELL DISTRIBUTION WIDTH-CV 15.6 % (11.5-14.5)
[2020-04-02 08:04] LABS: HEMATOCRIT 25.4 % (42.0-52.0); HEMOGLOBIN 7.9 g/dl (13.5-18.0); MEAN CORPUSCULAR HEMOGLOBIN 27 pg (27.0-31.0)
[2020-04-02 08:17] LABS: ALBUMIN 3.1 gm/dL (3.5-5.0); CALCIUM 9.7 mg/dL (8.4-10.2); CREATININE, serum 2.83 (0.66-1.25); POTASSIUM 3.9 mmol/L (3.4-5.0)
[2020-04-02 08:27] LABS: INR 1.3 (0.8-3.0)
[2020-04-02 11:19] VITALS: BP 108/42; PULSE 78; TEMP 97.6
[2020-04-02 15:17] VITALS: BP 115/50; PULSE 82; TEMP 98.3
[2020-04-02 19:47] VITALS: BP 96/41; PULSE 85; TEMP 97.6
[2020-04-02 23:57] VITALS: BP 106/49; PULSE 86; TEMP 97.9
[2020-04-03] VITALS (13 sets, daily range): BP systolic 94–164; BP diastolic 31–66; PULSE 40–103; TEMP 97.9–98.3
[2020-04-03 06:02] LABS: BASO # 0.1 (0.0-0.2); BASO % 1.5 % (0.0-2.0); EOS # 0.2 (0.0-0.7); EOS % 3.1 % (0-4.0); GRAN % 60.8 % (42.2-75.2); MEAN CELL VOLUME 88 fl (80.0-100.0); MEAN CORPUSCULAR HGB CONC 31 g/dl (33.0-37.0); MEAN PLATELET VOLUME 9.5 fl (7.4-10.4); MONO # 1.2 (0.1-0.6); MONO % 18.5 % (1.7-9.3); PLATELET COUNT 209 K/mm3 (130-400); RED BLOOD COUNT 2.88 M/mm3 (4.20-5.60); REDCELL DISTRIBUTION WIDTH-CV 15.6 % (11.5-14.5)
[2020-04-03 06:03] LABS: HEMATOCRIT 25.3 % (42.0-52.0); HEMOGLOBIN 7.9 g/dl (13.5-18.0); MEAN CORPUSCULAR HEMOGLOBIN 27 pg (27.0-31.0)
[2020-04-03 06:13] LABS: CALCIUM 9.4 mg/dL (8.4-10.2); CREATININE, serum 2.24 (0.66-1.25); PHOSPHOROUS 3.6 mg/dL (2.5-4.5); POTASSIUM 3.8 mmol/L (3.4-5.0)
[2020-04-03 06:24] LABS: INR 1.3 (0.8-3.0); PROTHROMBIN TIME 14.5 SECONDS (9.7-12.8)
[2020-04-04 00:05] VITALS: BP 97/28; PULSE 69; TEMP 98.1
[2020-04-04 00:48] VITALS: BP 98/47
[2020-04-04 04:02] VITALS: BP 117/39; PULSE 87; TEMP 98.2
[2020-04-04 07:45] VITALS: BP 98/47; PULSE 80; TEMP 97.8
[2020-04-04 08:36] LABS: BASO # 0.1 (0.0-0.2); BASO % 1.6 % (0.0-2.0); EOS # 0.2 (0.0-0.7); EOS % 2.5 % (0-4.0); GRAN # 5.1 (1.4-6.5); GRAN % 63.3 % (42.2-75.2); LYMPH # 1.1 (1.2-3.4); MEAN CELL VOLUME 87 fl (80.0-100.0); MEAN CORPUSCULAR HGB CONC 30 g/dl (33.0-37.0); MEAN PLATELET VOLUME 9.7 fl (7.4-10.4); MONO # 1.4 (0.1-0.6); MONO % 17.6 % (1.7-9.3); PLATELET COUNT 235 K/mm3 (130-400); RED BLOOD COUNT 3.22 M/mm3 (4.20-5.60); REDCELL DISTRIBUTION WIDTH-CV 15.6 % (11.5-14.5)
[2020-04-04 08:38] LABS: HEMATOCRIT 28.1 % (42.0-52.0); HEMOGLOBIN 8.5 g/dl (13.5-18.0); MEAN CORPUSCULAR HEMOGLOBIN 26 pg (27.0-31.0)
[2020-04-04 08:49] LABS: ALBUMIN 3.3 gm/dL (3.5-5.0); CALCIUM 9.8 mg/dL (8.4-10.2); CREATININE, serum 2.5 (0.66-1.25); PHOSPHOROUS 3.7 mg/dL (2.5-4.5); POTASSIUM 3.9 mmol/L (3.4-5.0)
[2020-04-04 08:53] LABS: INR 1.3 (0.8-3.0); PROTHROMBIN TIME 14.1 SECONDS (9.7-12.8)
[2020-04-04] MEDS ORDERED: LANOXIN 0.120.125 MG PO (11:54)
[2020-04-04] MEDS ORDERED: LASIX 80MG TABL80 MG PO (11:57)
[2020-04-04] MEDS ORDERED: JANUVIA50 MG PO (11:59)
[2020-04-04 12:49] VITALS: BP 108/45; PULSE 60; TEMP 97.9
== END 2020-04-04 15:15 | disposition home health service (06) | DRG 264 ==
LOC: MEDICAL 13:54 → EU 13:54 → MEDICAL 03-26 12:21
PROVIDERS: Nurse Anesthetist, Certified Registered; ADMIT Internal Medicine Nephrology
PROC: 5A1D70Z Performance of Urinary Filtration, Intermittent, Less than 6 Hours Per Day (ICD-10-PCS; 2020-03-27)
PROC: 031C0ZF Bypass Left Radial Artery to Lower Arm Vein, Open Approach (ICD-10-PCS; principal; 2020-04-01)
PROC: 0DB78ZX Excision of Stomach, Pylorus, Via Natural or Artificial Opening Endoscopic, Diagnostic (ICD-10-PCS; 2020-04-03)
PROC: 0DBK8ZZ Excision of Ascending Colon, Via Natural or Artificial Opening Endoscopic (ICD-10-PCS; 2020-04-03)
PROC: 0DBP8ZZ Excision of Rectum, Via Natural or Artificial Opening Endoscopic (ICD-10-PCS; 2020-04-03)
DX: I13.2 Hypertensive heart and chronic kidney disease with heart failure and with stage 5 chronic kidney disease, or end stage renal disease (principal); N18.6 End stage renal disease; K57.31 Diverticulosis of large intestine without perforation or abscess with bleeding; K29.71 Gastritis, unspecified, with bleeding; K29.81 Duodenitis with bleeding; I50.32 Chronic diastolic (congestive) heart failure; K91.2 Postsurgical malabsorption, not elsewhere classified; Z68.41 Body mass index [BMI] 40.0-44.9, adult; I48.20 Chronic atrial fibrillation, unspecified; I48.91 Unspecified atrial fibrillation; K76.0 Fatty (change of) liver, not elsewhere classified; E66.09 Other obesity due to excess calories; E87.5 Hyperkalemia; D12.8 Benign neoplasm of rectum; K63.5 Polyp of colon; E11.21 Type 2 diabetes mellitus with diabetic nephropathy; D63.1 Anemia in chronic kidney disease; E78.5 Hyperlipidemia, unspecified; E11.22 Type 2 diabetes mellitus with diabetic chronic kidney disease; J44.9 Chronic obstructive pulmonary disease, unspecified; I07.1 Rheumatic tricuspid insufficiency; I27.20 Pulmonary hypertension, unspecified; Z79.01 Long term (current) use of anticoagulants; Z79.4 Long term (current) use of insulin; Z95.2 Presence of prosthetic heart valve; Z87.891 Personal history of nicotine dependence
CPT/HCPCS: C1769; C1892; J1200; J1644; J1650; J1815; J2250; J2704; J2916; J3010; J7030; Q5105

== ENCOUNTER → 2020-06-10 | Outpatient (CLI) | payer MEDICARE, OTHER ==
[~2020-06-10] MED LIST changes: +JANUVIA50 MG PO; +LANOXIN 0.120.125 MG PO; +LOVENOX120 MG/0.8 SQ; +PROTONIX 40MG T40 MG PO
== END ==
LOC: COL.RAD 15:52
DX: M25.512 Pain in left shoulder (principal); W19.XXXA Unspecified fall, initial encounter